=== PATIENT | female | born 1965 | race Caucasian/White ===

== ENCOUNTER → 2016-12-18 | Outpatient (CLI) | payer OTHER ==
--- NOTE | 2016-12-19 18:05 | BD ---
EXAMINATION TYPE: MG DEXA axial skeleton. DATE OF EXAM: 12/18/2016 12:51 PM COMPARISON: NONE CLINICAL HISTORY: 51-year-old female screening for osteoporosis Height: 67 IN Weight: 166 LBS FRAX RISK QUESTIONS: Alcohol (3 or more units per day): NO Family History (Parent hip fracture): NO Glucocorticoids (More than 3mos): NO (Ex: prednisone, prednisolone, methylprednisolone, dexamethasone, and hydrocortisone). History of Fracture in Adulthood: NO Secondary Osteoporosis: 1. Type 1 Diabetes: NO 2. Hyperthyroidism: NO 3. Menopause before 45: YES AGE 33 4. Malnutrition: NO 5. Chronic liver disease: NO Rheumatoid Arthritis: NO Current Tobacco Use: NO RISK FACTORS HISTORY OF: Active: YES Postmenopausal woman: YES AGE 33 MEDICATIONS: Thyroid Medications: YES Which medication: Synthroid How Lon YRS Additional Medications: CALCIUM, SYNTHROID, WATER PILL, EXAM MEASUREMENTS: Bone mineral densitometry was performed using the Factual System. Bone mineral density as measured about the Lumbar spine is: ----- L1-L4(G/cm2): 1.061 T Score Values are as follows: ----- L2: -0.8 ----- L3: -0.8 ----- L4: -1.5 ----- L1-L4: -1.0 Bone mineral density has: Decreased -3.6% since study of: 12/08/2013 Bone mineral density about the R hip (g/cm2): 0.781 Bone mineral density about the L hip (g/cm2): 0.807 T Score values are as follows: -----R Neck: -1.8 -----L Neck: -1.7 -----R Intertrochanter: -2.3 -----L Intertrochanter: -2.2 Bone mineral density has: Decreased -4.0% since study of: 12/08/2013 IMPRESSION: Osteopenia is indicated by T score values in the lumbar spine and both hips. There is slightly increa sed risk of fracture and the patient may be considered for treatment. Re-Screen 2 to 5 years. NOTE: T-SCORE=SD OF THE YOUNG ADULT MEAN.
== END | disposition home or self-care (01) ==
LOC: RADBDWWP 12:49
PROVIDERS: ATTEND Internal Medicine
DX: M85.88 Other specified disorders of bone density and structure, other site (principal)
CPT/HCPCS: 77080; G0202

== ENCOUNTER → 2016-12-18 | Outpatient (CLI) | payer OTHER ==
--- NOTE | 2016-12-19 11:46 | MM ---
Reason for exam: screening (asymptomatic). Last mammogram was performed 2 years and 3 months ago. History: Patient is postmenopausal. Family history of premenopausal breast cancer in paternal cousin at age 45 and breast cancer in paternal cousin. Benign excisional biopsy of the left breast, December 01, 2001. Physical Findings: A clinical breast exam by your physician is recommended on an annual basis and results should be correlated with mammographic findings. MG Screening Mammo w CAD Bilateral CC and MLO view(s) were taken. Prior study comparison: September 06, 2014, bilateral MG screening mammo w CAD. September 02, 2013, bilateral digital screening mammo w/CAD. There are scattered fibroglandular densities. No significant changes when compared with prior studies. ASSESSMENT: Benign, BI-RAD 2 RECOMMENDATION: Routine screening mammogram of both breasts in 1 year.
== END ==
LOC: RADMAMWWP 12:40
PROVIDERS: ATTEND Obstetrics & Gynecology
DX: Z12.31 Encounter for screening mammogram for malignant neoplasm of breast (principal)

== ENCOUNTER → 2017-07-03 | Outpatient (CLI) | payer OTHER ==
--- NOTE | 2017-07-03 08:32 | MR ---
EXAMINATION TYPE: MR hip RT wo con DATE OF EXAM: 07/03/2017 COMPARISON: NONE HISTORY: 52-year-old female right hip Pain, locking, clicking in rt hip TECHNIQUE: Multiplanar, multisequence images of the right hip were obtained without IV contrast. FINDINGS: Prominent fecal distention of the rectum and distal sigmoid measuring up to 5.5 cm wide. Uterus surgi masoud absent. There is at least moderate irregular cartilage loss along the anterior weightbearing aspect of the ri ght hip joint with irregularity of the subchondral bone along the acetabular side and underlying prom inent subchondral cystic change measuring up to 1.2 cm. The appearance of the anterior superior labru m is degenerative on the sagittal sequence. On the contralateral side, there is some focal subchondral marrow edema along the central weightbeari ng aspect. No discrete fracture on T1-weighted sequence. The edema is fairly localized to the subchon dral bone. No evidence for hip fracture. The SI joints and sacrum appear intact. No significant joint effusion. The rectus femoris and hamstring origins as well as the iliopsoas and gluteal insertions appear intac t. There is very minimal cystic change at the lateral gluteus medius insertion on the right suggestin g mild tendinosis. No suspicious bone marrow replacement. Heterogeneous fatty marrow signal likely due to osteoporosis. Normal course, caliber, and signal intensity of the sciatic nerves. IMPRESSION: 1. Prominent subchondral cystic change along the anterior weightbearing aspect of the right hip joint . There is at least moderate irregular cartilage loss here compatible with underlying osteoarthrosis. Radiographic correlation recommended. 2. Some mild focal subchondral marrow edema along the central weightbearing aspect of the left femora l head probably reactive to underlying osteoarthrosis. The localized extent of edema makes early AVN less likely especially if this side is not symptomatic. Follow-up can be considered. 3. Mild insertional gluteal tendinosis on the right. 4. Fecal distention of the distal sigmoid and rectum measuring up to 5.5 cm wide.
== END ==
LOC: RADMRIMAIN 06:08
PROVIDERS: ATTEND Orthopaedic Surgery
DX: M76.01 Gluteal tendinitis, right hip (principal); R60.0 Localized edema

== ENCOUNTER 2019-05-08 07:30 | Inpatient (IN) | payer BC, OTHER ==
[2019-05-11 09:58] VITALS: BMI 22.0
[2019-05-17] MEDS ORDERED: ONDANSETRON 4 MG/2 ML VIAL IVP ONE (06:35)
[2019-05-17] MEDS ORDERED: HYDROmorphone 0.5 MG/0.5 ML SYRINGE IVP PRN (06:35)
[2019-05-17] MEDS ORDERED: DEXAMETHASONE SOD PHOSPHATE 10 MG/ML 1 ML VIAL IV ONE (06:35)
[2019-05-19] MEDS ORDERED: TRANEXAMIC ACID 1,000 MG in SODIUM CHLORIDE 0.9% 100 ML IVPB ONE ×4 (05:00)
[2019-05-19] MEDS ORDERED: MELOXICAM 7.5 MG TAB PO ONE (05:00)
[2019-05-19] MEDS ORDERED: ACETAMINOPHEN TAB 500 MG TAB PO ONE (05:00)
[2019-05-19] MEDS ORDERED: VANCOMYCIN 1,000 MG in SODIUM CHLORIDE 0.9% 250 ML IVPB ONE ×2 (06:00→22:00)
[2019-05-19] MEDS ORDERED: ROPIVACAINE 246.25 MG, EPINEPHrine 0.5 MG, KETOROLAC 30 MG, cloNIDine HCL/PF 80 MCG, WA... MISCELLANE ONE ×10 (06:02→06:15)
[2019-05-19] MEDS ORDERED: LIDOCAINE 1% 20 ML VIAL (10MG/ML) FOR IV START INTRADERMA ONE (10:09)
[2019-05-19] MEDS: LACTATED RINGERS 1,000 ML IV SCH ×3 (10:09→17:59)
[2019-05-19] MEDS ORDERED: MIDAZOLAM (PF) 2 MG/2 ML VIAL IVP ONE (11:07)
[2019-05-19] MEDS ORDERED: hydrOXYzine PAMOATE 25 MG CAP PO PRN (11:09)
[2019-05-19] MEDS ORDERED: MAGNESIUM HYDROXIDE 2,400 MG/10 ML CUP PO PRN (11:09)
[2019-05-19] MEDS ORDERED: NALOXONE 0.4 MG/ML 1 ML VIAL IV PRN (11:09)
[2019-05-19] MEDS ORDERED: DIAZEPAM 5 MG TAB PO PRN (11:09)
[2019-05-19] MEDS ORDERED: HYDROmorphone 0.5 MG/0.5 ML SYRINGE IVP PRN (11:09)
[2019-05-19] MEDS ORDERED: HYDROcodone/APAP 5-325MG 1 EACH TAB PO PRN (11:09)
[2019-05-19] MEDS ORDERED: HYDROmorphone 1 MG/ML 1 ML SYRINGE IVP PRN (11:09)
[2019-05-19] MEDS ORDERED: SODIUM CHLORIDE 0.9% IRRIG 1,000 ML BTL IRRIGATION ONE (11:36)
[2019-05-19] MEDS ORDERED: ePHEDrine SULFATE/0.9% NACL/PF 50 MG/5 ML SYRINGE IV ONE (11:36)
[2019-05-19] MEDS ORDERED: SODIUM CHLORIDE 0.9% 100 ML BAG ONE (11:36)
[2019-05-19] MEDS ORDERED: MIDAZOLAM 2 MG/2 ML VIAL ONE (11:36)
[2019-05-19] MEDS ORDERED: PROPOFOL 10 MG/ML 20 ML VIAL IV ONE (11:36)
[2019-05-19] MEDS ORDERED: fentaNYL (PF) 50 MCG/ML 2 ML AMP ONE (11:36)
[2019-05-19] MEDS ORDERED: HEPARIN SODIUM,PORCINE 10,000 UNIT/ML 1 ML VIAL ONE (11:36)
[2019-05-19] MEDS ORDERED: TRANEXAMIC ACID 1,000 MG/10 ML VIAL ONE (11:36)
[2019-05-19] MEDS ORDERED: ceFAZolin 3,000 MG in SODIUM CHLORIDE 0.9% IRRIGATIO 3,000 ML IRRIGATION ONE (11:42)
--- NOTE | 2019-05-19 13:00 | P.OP ---
Date of Procedure: 05/19/19 Preoperative Diagnosis: Severe osteoarthritis right hip Postoperative Diagnosis: Severe osteoarthritis right hip Procedure(s) Performed: Right total hip arthroplasty with a direct anterior approach Implants: [employer] nephew Polarstem size 3 standard [employer] R3, 3 hole acetabular shell, 52 mm [employer] reflection 6.5 mm cancellus screw, 20 mm 2 [employer] R3, XLPE 20 acetabular liner [employer]hew Oxinium femoral head 36 m, +0 All components were press-fit. The articulation is Oxinium on polyethylene. Anesthesia: spinal Surgeon: Romero Apodaca Welder Apprentice #1: Kendal Sanderson Estimated Blood Loss (ml): 200 (67 mL returned with Cell Saver) Pathology: other (Femoral head and) Condition: stable Disposition: PACU Indications for Procedure: After failure of conservative treatment we discussed the surgical and nonsurgical treatment options at length. Patient wishes to proceed with a total hip arthroplasty with a direct anterior approach. Complications specific to this procedure were discussed at length, including but not limited to infection, leg length discrepancy, dislocation, and nerve injury. Patient is aware of all these complications and informed consent was obtained Operative Findings: The operative findings are consistent with severe osteoarthritis of the right hip Description of Procedure: Patient was seen and evaluated in the preoperative area, consent was reviewed, and the surgical site was marked with a skin marker. Patient was then brought to the operating room and given prophylactic antibiotics intravenously. 1 g of Tranexamic acid was also given. A spinal anesthetic was administered by the anesthesia department. The patient was then placed on the Ernest table with the bony prominences well-padded. The hip area was then prepped and draped in usual sterile fashion. A universal timeout was then performed, which confirmed the patient's name, surgical site, ALLERGIES, and procedure being performed. Next the incision site was located at 1 cm distal and 1 cm lateral to the anterior superior iliac spine. The skin and subcutaneous tissues were sharply incised. Incision was carefully dissected down to the fascia overlying the tensor fascia mabel muscle. This fascia was then incised in line with the incision. Next, using blunt finger dissection, the tensor fascia mabel muscle was dissected off its investing fascia. The muscle was then carefully retracted laterally with a cobra retractor over the lateral neck of the femur. Next, the circumflex vessels were identified and cauterized using the AquaMantis device. The anterior hip capsule was then exposed. The capsule was then opened and an inverted T fashion. Cobra retractors were then placed intracapsularly. The proximal femur was then visualized. The femoral neck was then osteotomized appropriate level above the lesser trochanter. Small amount of traction was placed with the Ernest table. A small wedge of bone was then removed from the remaining femoral head. Next, using a corkscrew femoral head was easily removed from the acetabulum. On gross visual inspection, the femoral head had complete loss of articular cartilage in multiple periarticular osteophytes. Attention was then turned to the acetabulum. the acetabulum was exposed and any remaining labrum was excised. Sequential reaming of the acetabulum was performed using fluoroscopic guidance. When the appropriate size was reached, a trial was then placed. The position and fit of the trial was checked with fluoroscopy. The trial was then removed. Then, usi ng fluoroscopic guidance, the final implant was impacted at 20 of anteversion and 40 of abduction, and fully seated in the acetabulum. 2 screws were then placed in the acetabulum. Again fluoroscopy was used to check position of the screws. Next, the liner was then impacted, with a 20 elevated liner located in the anterior superior quadrant. Component locking was confirmed. Attention was then directed to the femur. With the aid of the Ernest table, the femur was externally rotated to approximately 130, extended, and abducted under the opposite leg. A side hook was then placed under the proximal femur, and the side hook elevator was used to elevate the proximal femur. Retractors were then placed. A capsular release was performed, as well as a release of the conjoined tendon, which afforded excellent visualization of the proximal femur. Next, a box osteotome was used to lateralize the proximal femur. A tennis ball coverer hand was then used to locate the femoral canal. Sequential broaching was then performed with appropriate size which afforded excellent fixation in the proximal femur. A trial was then placed with appropriate head and neck, and the hip was gently reduced with the aid of the Ernest table. Fluoroscopy was then used to check position of the components, as well as to ensure equal leg lengths. The hip was then gently dislocated and the trials were then removed. Final implants were then impacted and the hip was again reduced. Final fluoroscopic x-rays confirmed that the components were in anatomic position, as well as equal leg lengths. The hip was also taken through range of motion, and found to be stable. The hip was then copiously irrigated with antibiotic solution with pulsatile lavage. The hip was then irrigated with Irrisept solution. The soft tissues were then injected with a ropivacaine solution, which consisted of 246.25 mg of ropivacaine, 0.5 mg of epinephrine, 30 mg of Toradol, 80 g of clonidine, and 48.45 mL of sterile water, for a total of 100 mL of fluid injected. A second dose of 1 g of Tranexamic acid was also given. the fascia was then closed with 2-0 strata fix suture. The subcutaneous tissue was closed with 3-0 Vicryl. The subcuticular tissue was closed with 3-0 strata fix suture. The skin was then closed with Dermabond glue and a sterile silver dressing. The patient was then transferred to the recovery room in stable condition. The personal assistant JANESSA Can was required due to the complexity of surgery, and the need for skilled surgical specialist for positioning, draping, exposure, retraction, and closure of the wound.
[2019-05-19] MEDS: HYDROmorphone 0.5 MG/0.5 ML SYRINGE IVP PRN ×2 (13:26→22:24)
[2019-05-19] MEDS ORDERED: HYDROmorphone 1 MG/ML 1 ML SYRINGE IVP ONE ×3 (13:33→16:46)
--- NOTE | 2019-05-19 13:55 | XR ---
EXAMINATION TYPE: XR Hip Limited RT DATE OF EXAM: 05/19/2019 CLINICAL HISTORY: Right hip pain and osteoarthritis. TECHNIQUE: Single AP portable view of right hip is obtained immediately postoperatively. COMPARISON: None. FINDINGS: Metallic hardware from right hip arthroplasty is seen and appears satisfactory in alignment and position. There is evidence of recent surgery with subcutaneous gas and soft tissue swelling no satish laterally. IMPRESSION: Metallic hardware from right hip arthroplasty is satisfactory in position.
--- NOTE | 2019-05-19 13:56 | FL ---
EXAMINATION TYPE: FL guidance operating room, XR Hip Limited RT DATE OF EXAM: 05/19/2019 CLINICAL HISTORY: Right femoral arthroplasty. Fluoroscopic documentation. TECHNIQUE: Fluoroscopy. COMPARISON: None. FINDINGS: Fluoroscopic guidance was provided during procedure performed by Dr. Apodaca. A total of 26 seconds of fluoroscopic time was utilized during the procedure and 2 spot images was acquired dur ing right femoral arthroplasty. IMPRESSION: As Above.
[2019-05-19] MEDS ORDERED: HYDROmorphone 0.5 MG/0.5 ML SYRINGE IVP ONE (14:13)
[2019-05-19] MEDS ORDERED: LACTATED RINGERS 1,000 ML IV ONE (14:15)
[2019-05-19] MEDS ORDERED: diphenhydrAMINE 50 MG/ML 1 ML VIAL IVP ONE (14:58)
[2019-05-19] MEDS: SODIUM CHLORIDE 0.9% 1,000 ML IV SCH (18:00)
[2019-05-19] MEDS: ONDANSETRON 4 MG/2 ML VIAL IVP PRN (22:09)
[2019-05-19] MEDS: SENNOSIDES-DOCUSATE SODIUM 1 EACH TAB PO SCH (22:11)
[2019-05-19] MEDS: ASPIRIN 325 MG TAB PO SCH (22:11)
[2019-05-19] MEDS: POTASSIUM CHLORIDE ER 20 MEQ TAB.ER PO SCH (22:11)
--- NOTE | 2019-05-19 23:42 | CONS ---
CONSULTATION REASON FOR CONSULTATION: Advice regarding hypothyroidism and multiple medical issues, requested by Dr. Apodaca. HISTORY OF PRESENT ILLNESS: This 54-year-old woman with a past medical history of multiple medical problems, including hypothyroidism, history of migraine, hysterectomy, DJD, being followed by a primary physician in the [place] area, underwent right total hip joint arthroplasty by Dr. Apodaca. There is no history of any chest pain, no history of palpitations, no history of headache, nausea, vomiting, diarrhea, fever, rigor or chills at this time. PAST MEDICAL HISTORY: 1. Hypothyroidism. 2. History of migraine. 3. DJD. 4. Hysterectomy. MEDICATIONS: Medications prior to admission include: 1. Topamax 100 mg p.o. daily. 2. K-Dur 20 mEq p.o. b.i.d. 3. Synthroid 150 mcg p.o. daily. 4. HydroDIURIL 25 mg b.i.d. ALLERGIES: NONE. FAMILY HISTORY: No history of heart disease or strokes in the family. SOCIAL HISTORY: Previous history of smoking. Occasional alcohol intake. REVIEW OF SYSTEMS: ENT: No diminished hearing. No diminished vision. CARDIOVASCULAR SYSTEM: No angina, palpitations. RESPIRATORY SYSTEM: No cough, hemoptysis. GI: No nausea, vomiting. : No dysuria or retention. NERVOUS SYSTEM: No numbness, weakness. ALLERGY/IMMUNOLOGY: No asthma, hayfever. MUSCULOSKELETAL: As mentioned earlier. HEMATOLOGY/ONCOLOGY: No history of anemia. ENDOCRINE: Hypothyroidism. CONSTITUTIONAL: As mentioned earlier. DERMATOLOGY: Negative. RHEUMATOLOGY: Negative. PSYCHIATRY: As mentioned earlier. PHYSICAL EXAMINATION: Patient alert and oriented x3. Pulse is 71. It is 49 at rest. Blood pressure is 90/60, respirations 16, temperature 97.4, pulse ox 94% on room air. HEENT: Conjunctivae normal. NECK: No jugular venous distention. CARDIOVASCULAR SYSTEM: S1, S2 muffled. RESPIRATORY SYSTEM: Breath sounds diminished at the bases. No rhonchi. No crackles. ABDOMEN: Soft, non-tender. No mass palpable. LEGS: Status post surgery. NERVOUS SYSTEM: Higher functions as mentioned earlier. Moves all 4 limbs. No focal motor or sensory deficit. LYMPHATICS: No lymph node palpable in neck, axillae or groin. SKIN: No ulcer, rash, bleeding. JOINTS: No active deforming arthropathy. LABS: Creatinine is 1.09 preoperatively on 05/11/2019. ASSESSMENT: 1. Status post right total hip joint arthroplasty. 2. Bradycardia, possibly sinus. 3. Increased creatinine prior to admission. 4. History of hypothyroidism. 5. History of migraine. 6. History of degenerative joint disease. 7. History of thyroidectomy, goiter. 8. Remote history of nicotine dependence. RECOMMENDATIONS AND DISCUSSION: In this 54-year-old woman who presented with multiple medical issues, at this time I recommend to continue current management, continue with symptomatic treatment. Resume the home medications. Monitor blood pressure closely. EKG. Otherwise, I would also recommend repeat labs. Repeat BMP in the morning. We will follow the patient closely with you. Levothyroxine dose may be continued. Incentive spirometry. Recommend close followup with the primary physician in the outpatient setting. Thank you, Dr. Apodaca, for letting us participate in the care of this patient. Please refer to the orders for further details. MMODL / IJN: [id number] /
[2019-05-20] MEDS: HYDROcodone/APAP 5-325MG 1 EACH TAB PO PRN ×2 (00:13→05:19)
[2019-05-20] MEDS: LACTATED RINGERS 1,000 ML IV SCH ×2 (03:23→23:32)
[2019-05-20] MEDS: LEVOTHYROXINE 75 MCG TAB PO SCH (05:19)
[2019-05-20] MEDS: SODIUM CHLORIDE 0.9% 1,000 ML IV SCH ×2 (05:29→21:10)
[2019-05-20 07:52] LABS: Basophils % (A) 0 %; Eosinophils # (A) 0.1 k/uL (0-0.7); Eosinophils % (A) 1 %; HCT 29.7 % (34.0-46.0); Lymphocytes # (A) 0.8 k/uL (1.0-4.8); Lymphocytes % (A) 13 %; MCH 28.4 pg (25.0-35.0); MCHC 32.9 g/dL (31.0-37.0); MCV 86.4 fL (80.0-100.0); Monocytes # (A) 0.2 k/uL (0-1.0); Monocytes % (A) 4 %; Neutrophils # (A) 4.8 k/uL (1.3-7.7); Neutrophils % (A) 81 %; Platelet Count 160 k/uL (150-450); RBC 3.44 m/uL (3.80-5.40); RDW 15.1 % (11.5-15.5); WBC 5.9 k/uL (3.8-10.6)
[2019-05-20 07:56] LABS: HGB 9.8 gm/dL (11.4-16.0)
[2019-05-20 08:02] LABS: African American GFR (CKD) >90 (>60 ml/min/1.73 sqM); Anion Gap 5 mmol/L; Blood Urea Nitrogen 16 mg/dL (7-17); Calcium 8.3 mg/dL (8.4-10.2); Carbon Dioxide 23 mmol/L (22-30); Chloride 111 mmol/L (98-107); Glucose 103 mg/dL (74-99); Potassium 3.7 mmol/L (3.5-5.1); Sodium 139 mmol/L (137-145)
[2019-05-20] MEDS: POTASSIUM CHLORIDE ER 20 MEQ TAB.ER PO SCH ×2 (08:22→20:57)
[2019-05-20] MEDS: MELOXICAM 7.5 MG TAB PO SCH (08:23)
[2019-05-20] MEDS: ASPIRIN 325 MG TAB PO SCH ×2 (08:23→22:43)
[2019-05-20] MEDS: ONDANSETRON 4 MG/2 ML VIAL IVP PRN ×2 (08:23→17:07)
[2019-05-20] MEDS ORDERED: TOPIRAMATE 100 MG TAB PO SCH (09:00)
[2019-05-20] MEDS ORDERED: HYDROCHLOROTHIAZIDE 25 MG TAB PO SCH (09:00)
[2019-05-20] MEDS ORDERED: traMADol 50 MG TAB PO PRN (09:02)
--- NOTE | 2019-05-20 09:11 | P.DS ---
Providers Date of admission: 05/19/19 09:09 Expected date of discharge: 05/20/19 Attending physician: Romero Apodaca Consults: 05/19/19 11:09 Consult Physician Routine Consulting Provider: Jas Steinberg Consult Reason/Comments: medical management Do you want consulting provider notified?: Yes Primary care physician: Jes Mg - Discharge Diagnosis(es) (1) Osteoarthritis of right hip Current Visit: Yes Status: Acute (2) Status post total hip replacement, right Current Visit: Yes Status: Acute Hospital Course: This is a 54-year-old female with known history of degenerative arthritis of the right hip. The patient presents for evaluation. After discussion and consideration patient elects to proceed with total hip arthroplasty. The patient is seen preoperatively by Dr. Apodaca and medically cleared for surgery by their primary care physician. Patient is admitted to [facility] on 05/19[facility]2090 for total hip arthroplasty. The procedures performed without complication or sequelae. The patient is doing well postoperatively. Labs and vital signs are stable on day of discharge. On day of discharge patient's hip incision is healing well. There is minimal erythema. There is no drainage noted at this time. There is minimal soft tissue swelling to the hip and thigh. Patient has full foot and ankle motion without difficulty or pain. Calf is soft and nontender to palpation. Neurovascular status to the right lower extremity is intact. Patient is discharged home in good condition. Opioid start talking form is reviewed and signed at patient bedside. Please see med rec for accurate list of home medications. Plan - Discharge Summary Discharge Rx Participant: Yes New Discharge Prescriptions: New Aspirin 325 mg PO BID #60 tab Sennosides [Senokot] 1 tab PO BID #60 tablet traMADol HCl [Ultram] 1 - 2 tab PO Q6H PRN #56 tab PRN Reason: Pain Ondansetron Odt [Zofran Odt] 1 - 2 tab PO Q8HR PRN #18 tab PRN Reason: Nausea No Action Hydrochlorothiazide [Hydrodiuril] 25 mg PO DAILY Levothyroxine Sodium [Synthroid] 150 mcg PO DAILY Topiramate [Topamax] 100 mg PO DAILY Potassium Chloride ER [K-Dur 20] 20 meq PO BID Discharge Medication List Hydrochlorothiazide [Hydrodiuril] 25 mg PO DAILY 05/11/19 [History] Levothyroxine Sodium [Synthroid] 150 mcg PO DAILY 05/11/19 [History] Topiramate [Topamax] 100 mg PO DAILY 05/11/19 [History] Potassium Chloride ER [K-Dur 20] 20 meq PO BID 05/19/19 [History] Aspirin 325 mg PO BID #60 tab 05/20/19 [Rx] Ondansetron Odt [Zofran Odt] 1 - 2 tab PO Q8HR PRN #18 tab 05/20/19 [Rx] Sennosides [Senokot] 1 tab PO BID #60 tablet 05/20/19 [Rx] traMADol HCl [Ultram] 1 - 2 tab PO Q6H PRN #56 tab 05/20/19 [Rx] Follow up Appointment(s)/Referral(s): Romero Apodaca DO [Doctor of Osteopathic Medicine] - 2 Weeks Activity/Diet/Wound Care/Special Instructions: Weightbearing as tolerated with walker. Leave dressing intact. Dressing may be removed by home care nurse or by patient in 10 days. May shower with dressing on. Recommend use of compression stockings daily for at least 2 weeks during the day to help prevent swelling and blood clots. May remove at night before sleeping. Please follow-up with [facility] in 2 weeks and call with any questions or concerns, .
[2019-05-20] MEDS: traMADol 50 MG TAB PO PRN ×4 (10:07→22:43)
[2019-05-20] MEDS: METOCLOPRAMIDE 5 MG/ML 2 ML VIAL IVP PRN ×2 (10:22→21:06)
[2019-05-20] MEDS: PANTOPRAZOLE 40 MG TABLET PO SCH ×2 (12:29→17:06)
--- NOTE | 2019-05-20 20:22 | PN ---
PROGRESS NOTE DATE OF SERVICE: 05/20/2019. This 54-year-old woman who was admitted after hip arthroplasty has some mild relative hypotension. No chest pain. No palpitations. No fever. The patient complains of nausea. REVIEW OF SYSTEMS: CARDIOVASCULAR SYSTEM: No angina, palpitations. RESPIRATORY SYSTEM: As mentioned earlier. GI: As mentioned earlier. : No dysuria or retention. NERVOUS SYSTEM: No numbness, weakness. CURRENT MEDICATIONS: Reviewed. They include: 1. Aspirin 325 mg b.i.d. 2. Valium 2.5 mg q.8. 3. Dilaudid 0.2 mg q.3. 4. Vistaril 25 mg p.o. daily. 5. Synthroid 150 mcg p.o. daily. 6. Mobic 7.5 daily. 7. Narcan. 8. Zofran. 9. Protonix 40 mg b.i.d. 10.Senokot-S. 11.Topamax. 12.Ultram. PHYSICAL EXAMINATION: Alert and oriented x3. Pulse 77, blood pressure 122/73, respiration 16, temperature 98.2, pulse ox 97% on room air. HEENT: Conjunctivae normal. NECK: No jugular venous distention. CARDIOVASCULAR SYSTEM: S1, S2 muffled. RESPIRATORY SYSTEM: Breath sounds diminished at the bases. No rhonchi. No crackles. ABDOMEN: Soft, non-tender. No mass palpable. LEGS: Status post right hip arthroplasty. NERVOUS SYSTEM: No focal deficit. LABS: WBC 5.9, hemoglobin 9.8. Other labs are noted. ASSESSMENT: 1. Status post right total hip joint arthroplasty. 2. Postoperative nausea. 3. Bradycardia, possibly sinus, improved. 4. Increased creatinine prior to admission, improved. 5. History of hypothyroidism. 6. History of migraine. 7. History of degenerative joint disease. 8. History of thyroidectomy and goiter. 9. Remote history of nicotine dependence. RECOMMENDATIONS AND DISCUSSION: I recommend to continue current medications, continue with the monitoring, symptomatic treatment. Otherwise, the patient has continued nausea. I would recommend continuing with symptomatic treatment. Continue with IV fluids. I would also recommend IV Protonix. Continue to monitor. I also recommend repeat labs in the morning. MMODL / IJN: [id number] /
[2019-05-20] MEDS: PANTOPRAZOLE 40 MG/10 ML VIAL IVP SCH (21:10)
[2019-05-20] MEDS ORDERED: SUMAtriptan SUCCINATE 6 MG/0.5 ML VIAL SQ STA (21:53)
[2019-05-20] MEDS: SENNOSIDES-DOCUSATE SODIUM 1 EACH TAB PO SCH (22:34)
[2019-05-20] MEDS: TOPIRAMATE 100 MG TAB PO SCH (22:43)
--- NOTE | 2019-05-20 23:10 | CT ---
History: ITS.REASON CT Reason: headache Exam: CT HEAD Without Contrast Technique more: CTDI is 49.27 mGy and DLP is 1109.4 mGy-cm. Technique more: This CT exam was performed using one or more of the following dose reduction techniques: automated exposure control, adjustment of the mA and/or kV according to patient size, and/or use of iterative reconstruction technique. Comparison: None available FINDINGS: No intracranial hemorrhage, mass effect or CT evidence of acute infarct. The ventricles are within limits and midline. The visualized paranasal sinuses, mastoids and orbits appear within limits. IMPRESSION: No intracranial hemorrhage, mass effect or CT evidence of acute infarct.
[2019-05-21] MEDS: LEVOTHYROXINE 75 MCG TAB PO SCH (05:47)
[2019-05-21] MEDS: ONDANSETRON 4 MG/2 ML VIAL IVP PRN ×2 (06:43→17:02)
--- NOTE | 2019-05-21 08:03 | P.PN ---
Subjective Progress Note Date: 05/21/19 This is a 54-year-old female who is status post right total hip arthroplasty. This is postoperative day #2 and patient is seen and evaluated at bedside. Patient's discharge was postponed due to nausea. Patient complains of a headache this morning, but states that this headache was brought on by dry heaves. Patient states that she was able to eat Jell-O this morning. Patient states that she had headaches yesterday and took Topamax which improved her headache. Patient states that she has been up and walking with physical therapy. Patient denies any fever/chills, numbness, weakness, tingling, abdominal pain, shortness of breath or chest pain. Objective - Vital Signs Vital signs: Vital Signs Temp 98.6 F 05/21/19 02:20 Pulse 76 05/21/19 02:20 Resp 18 05/21/19 03:45 BP 122/73 05/21/19 02:20 Pulse Ox 96 05/21/19 02:20 Intake & Output 05/20/19 05/21/19 05/21/19 18:59 06:59 18:59 Intake Total 756 Balance 756 Intake: Intake, IV Titration 756 Amount Sodium Chloride 0.9% 1, 756 000 ml @ 63 mls/hr IV . [id number] [facility] Rx#:[id number] Other: Voiding Method Toilet Toilet # Voids 2 2 - Exam Vital signs are stable. Patient is in no acute distress and is alert and oriented 3. Calf is soft and nontender to palpation. Dressing is clean, dry, and intact. Patient has full foot and ankle motion without pain or difficulty. Neurovascular status and circulatory status are intact. - Labs CBC & Chem 7: 05/20/19 07:11 05/20/19 07:11 Labs: Abnormal Lab Results - Last 24 Hours (Table) 05/20/19 Range/Units 07:11 Chloride 111 H (98-107) mmol/L Glucose 103 H (74-99) mg/dL Calcium 8.3 L (8.4-10.2) mg/dL Assessment and Plan (1) Osteoarthritis of right hip Current Visit: Yes Status: Acute Code(s): M16.11 - UNILATERAL PRIMARY OST EOARTHRITIS, RIGHT HIP SNOMED Code(s): 958981183986886 (2) Status post total hip replacement, right Current Visit: Yes Status: Acute Code(s): Z96.641 - PRESENCE OF RIGHT ARTIFI CIAL HIP JOINT SNOMED Code(s): 095962825652 Plan: Continue routine postop care and pain control. Continue anticoagulation with aspirin. Weightbearing as tolerated with a walker. Leave dressing in place for 10 days. Appreciate input from medicine. Anticipate discharge home with homecare today or tomorrow.
[2019-05-21] MEDS: ASPIRIN 325 MG TAB PO SCH (08:05)
[2019-05-21] MEDS: PANTOPRAZOLE 40 MG/10 ML VIAL IVP SCH ×2 (08:05→20:20)
[2019-05-21] MEDS: MELOXICAM 7.5 MG TAB PO SCH (08:05)
[2019-05-21] MEDS: POTASSIUM CHLORIDE ER 20 MEQ TAB.ER PO SCH ×2 (08:05→20:11)
[2019-05-21] MEDS: METOCLOPRAMIDE 5 MG/ML 2 ML VIAL IVP PRN (11:45)
[2019-05-21] MEDS ORDERED: HYDROmorphone 0.5 MG/0.5 ML SYRINGE IVP PRN (12:16)
[2019-05-21] MEDS ORDERED: SUMAtriptan SUCCINATE 6 MG/0.5 ML VIAL SQ STA (12:25)
[2019-05-21] MEDS: SODIUM CHLORIDE 0.9% 1,000 ML IV SCH ×3 (13:36→23:05)
--- NOTE | 2019-05-21 15:17 | XR ---
EXAMINATION TYPE: XR chest 1V portable DATE OF EXAM: 05/21/2019 COMPARISON: NONE HISTORY: Shortness of breath TECHNIQUE: Single frontal view of the chest is obtained. FINDINGS: There is no focal air space opacity, pleural effusion, or pneumothorax seen. Mild pulmona ry vascular congestion is seen with cephalization. The cardiac silhouette size is within normal limit s. The osseous structures are intact. IMPRESSION: Mild pulmonary vascular congestion although the heart is upper limits of normal is nonen larged and noncardiogenic fluid overload could be considered.
[2019-05-21 15:25] LABS: Appearance,Urine Clear (Clear); Bilirubin,Urine Negative (Negative); Blood,Urine Negative (Negative); Color,Urine Yellow; Glucose,Urine (UA) Negative (Negative); Ketones,Urine 3+ (Negative); Leukocyte Esterase,Urine Negative (Negative); Nitrite,Urine Negative (Negative); Protein,Urine Trace (Negative); Specific Gravity,Urine 1.019 (1.001-1.035); Urobilinogen,Urine <2.0 mg/dL (<2.0)
[2019-05-21] MEDS ORDERED: HEPARIN SODIUM,PORCINE 5,000 UNIT/ML 1 ML VIAL SQ SCH (16:00)
[2019-05-21] MEDS: MAG HYDROX/AL HYDROX/SIMETH 30 ML CUP PO SCH ×2 (16:56→20:20)
[2019-05-21] MEDS: METOCLOPRAMIDE 5 MG/ML 2 ML VIAL IVP SCH (16:57)
[2019-05-21] MEDS: traMADol 50 MG TAB PO PRN (17:08)
--- NOTE | 2019-05-21 19:52 | P.PN ---
Progress Note - Text Progress Note Date: 05/21/19 Patient seen at 13:20. Anesthesiology called to evaluate patient due to headache. The patient complains of severe headache that started in the afternoon after her surgery 05/19. The patient did have a spinal for that procedure. Per the patient, the headache feels like a migraine with some eleme nts of photophobia, but is more severe than her typical migraine. She did miss a dose of her maintenance topamax, but the headache started prior to that. The headache is worse when sitting and better when supine. Associated vomiting. The patient had almost complete relief after a dose of sumatriptan. The relief lasted about 8 hours. The patient received a second dose of sumatriptan prior to the interview and is starting to get relief. VSS Puncture site clean and dry A/P POD#2 s/p spinal for PAPO with spinal headache possibly complicated by migraine -- discussed at length the patient's options including blood patch vs conservative treatment with hydration and caffeine. The patient wishes to try conservative treatment first -- continue sumatriptan PRN -- will provide epidural blood patch if patient wishes
[2019-05-21] MEDS: SENNOSIDES-DOCUSATE SODIUM 1 EACH TAB PO SCH (20:11)
--- NOTE | 2019-05-21 20:14 | PN ---
PROGRESS NOTE DATE OF SERVICE: 05/21/2019 This 54-year-old woman was admitted with right hip arthroplasty with significant nausea. Patient also had significant headache also. The patient also had history of migraine, was on Topamax prophylaxis which was stopped a couple days ago. However, yesterday's headache responded to Imitrex subcu, which the patient used to take previously, but the patient had recurrence of headache today and the patient headache was more postural and especially sitting up according to the patient and the patient being closely monitored at this time. A CT scan of the brain was also done which showed no evidence of any acute disease and a chest x-ray was also done which showed suspected some suspected mild pulmonary vascular congestion. PAST MEDICAL HISTORY: Reviewed. REVIEW OF SYSTEMS: Cardiovascular system: As mentioned earlier. RESPIRATORY: As mentioned earlier. GASTROINTESTINAL: As mentioned earlier. GENITOURINARY: No dysuria. CENTRAL NERVOUS SYSTEM: As mentioned earlier. CURRENT MEDICATIONS: Reviewed and include: 1. Maalox 30 mL t.i.d. p.r.n. 2. Valium 2.5 mg q.h.s. 3. Dilaudid. 4. Zestril. 5. Synthroid 150 mcg p.o. daily. 6. Reglan. 7. Narcan. 8. Protonix. 9. K-Dur. 10.Senokot. 11.Topamax. 12.Ultram. PHYSICAL EXAM: Patient is alert, oriented x3. Pulse 79, blood pressure 120/77, respirations 16, temperature 98.2, pulse ox 98% on room air. HEENT: Conjunctivae normal. NECK: No JVD. CARDIOVASCULAR: S1, S2 muffled. RESPIRATIONS: Breath sounds diminished in the bases. A few scattered rhonchi and crackles. ABDOMEN: Soft, nontender. No mass palpable. LEGS are no edema. No swelling. CENTRAL NERVOUS SYSTEM: No focal deficits. LABS: WBC 5.9, hemoglobin is 9.8, sodium 139, potassium 3.7. ASSESSMENT: 1. Status post right total knee arthroplasty. 2. Postoperative nausea, possible acute gastritis. 3. Headaches, rule out spinal headaches versus migraine, acute exacerbation. 4. Bradycardia possibly sinus, improved. 5. Increased creatinine prior to admission, improved. 6. History of hypothyroidism. 7. History of migraine. 8. History of degenerative joint disease. 9. History of thyroidectomy and goiter. 10.Remote history of nicotine dependence. RECOMMENDATIONS AND DISCUSSION: Recommend to continue current medications, continue with monitoring, management and symptomatic treatment. Otherwise, at this time, I recommend continue with the current medications. I would also recommend repeat labs and closely monitor and further recommendations to follow. Closely follow with Orthopedic surgery and as well as anesthesia. MMKANDIL / IJN: [id number] /
[2019-05-21] MEDS: TOPIRAMATE 100 MG TAB PO SCH (20:20)
[2019-05-21] MEDS: ASPIRIN 81 MG PO SCH (20:20)
[2019-05-22] MEDS: LEVOTHYROXINE 75 MCG TAB PO SCH (06:23)
[2019-05-22] MEDS: MAG HYDROX/AL HYDROX/SIMETH 30 ML CUP PO SCH ×3 (08:04→21:04)
[2019-05-22] MEDS: POTASSIUM CHLORIDE ER 20 MEQ TAB.ER PO SCH ×2 (08:05→21:04)
[2019-05-22] MEDS: PANTOPRAZOLE 40 MG/10 ML VIAL IVP SCH (08:05)
[2019-05-22] MEDS: ASPIRIN 81 MG PO SCH ×2 (08:05→21:05)
[2019-05-22] MEDS: METOCLOPRAMIDE 5 MG/ML 2 ML VIAL IVP SCH ×3 (08:05→18:16)
--- NOTE | 2019-05-22 08:24 | P.PN ---
Subjective Progress Note Date: 05/22/19 This is a 54-year-old female who is status post right total hip arthroplasty. This is postoperative day #3 and patient is seen and evaluated at bedside. Patient states that she continues to have a headache with nausea and dry heaves. Patient states that the pain improves with rest and sumatriptan. Patient states that she has had symptoms of migraines like this in the past. Patient states that she is attempting to eat breakfast this morning. Patient states that her pain in the right hip is well controlled. Patient states that she has been up and walking with physical therapy. Patient denies any fever/chills, numbness, weakness, tingling, abdominal pain, shortness of breath or chest pain. Objective - Vital Signs Vital signs: Vital Signs Temp 98.6 F 05/22/19 07:00 Pulse 82 05/22/19 07:00 Resp 15 05/22/19 07:00 BP 130/76 05/22/19 07:00 Pulse Ox 98 05/22/19 07:00 Intake & Output 05/21/19 05/22/19 05/22/19 18:59 06:59 18:59 Intake Total 504 1150 Balance 504 1150 Intake: IV 504 Sodium Chloride 0.9% 1, 504 000 ml @ 63 mls/hr IV . [id number] ROHAN Rx#:[id number] Intake, IV Titration 750 Amount Sodium Chloride 0.9% 1, 750 000 ml @ 75 mls/hr IV . [id number] ROHAN Rx#:[id number] Oral 400 Other: Voiding Method Toilet # Voids 2 - Exam Vital signs are stable. Patient is in no acute distress and is alert and oriented 3. Calf is soft and nontender to palpation. Patient has good active range of motion of the right hip. Dressing is clean, dry, and intact. Patient has full foot and ankle motion without pain or difficulty. Neurovascular status and circulatory status are intact. - Labs CBC & Chem 7: 05/20/19 07:11 05/20/19 07:11 Labs: Abnormal Lab Results - Last 24 Hours (Table) 05/21/19 Range/Units 15:00 Urine Protein Trace H (Negative) Urine Ketones 3+ H (Negative) Microbiology - Last 24 Hours (Table) 05/21/19 15:00 Urine Culture - Preliminary Urine,Clean Catch Assessment and Plan (1) Osteoarthritis of right hip Current Visit: Yes Status: Acute Code(s): M16.11 - UNILATERAL PRIMARY OSTEOARTHRITIS, RIGHT HIP SNOMED Code(s): 635762084319199 (2) Status post total hip replacement, right Current Visit: Yes Status: Acute Code(s): Z96.641 - PRESENCE OF RIGHT ARTIFICIAL HIP JOINT SNOMED Code(s): 813347952519 Plan: Continue routine postop care and pain control. Continue anticoagulation with aspirin 81 mg twice a day. Weightbearing as tolerated with a walker. Leave dressing in place for 10 days. Appreciate input from medicine. Anticipate discharge home with homecare later today.
[2019-05-22 09:38] LABS: Basophils % (A) 0 %; Eosinophils % (A) 0 %; HCT 30.1 % (34.0-46.0); HGB 9.8 gm/dL (11.4-16.0); Lymphocytes # (A) 0.7 k/uL (1.0-4.8); Lymphocytes % (A) 9 %; MCHC 32.6 g/dL (31.0-37.0); Mean Platelet Volume 7.2; Monocytes # (A) 0.4 k/uL (0-1.0); Monocytes % (A) 5 %; Neutrophils # (A) 6.6 k/uL (1.3-7.7); Neutrophils % (A) 85 %; Platelet Count 175 k/uL (150-450); RDW 14.1 % (11.5-15.5); WBC 7.8 k/uL (3.8-10.6)
[2019-05-22] MEDS: MIDAZOLAM (PF) 2 MG/2 ML VIAL IVP ONE ×2 (15:31→15:37)
[2019-05-22] MEDS ORDERED: LACTATED RINGERS 1,000 ML IV ONE (15:57)
--- NOTE | 2019-05-22 16:06 | P.PN ---
Progress Note - Text Anesthesia. 1559. Patient had her hip replacement surgery on the word of May and has had a postural headache associated with photophobia and nausea since May 20. Conservative measures haven't helped. Patient now wishes to have an epidural blood patch performed. Timeout was performed at 1530. The patient seated perpendicular to the edge of the stretcher and with hat, Mask and sterile glovesthe patient's lumbar back was prepped with iodinated prep solution and a sterile drape placed. The area of the original spinal injection was identified and a skin wheal raised in this area. An 18-gauge Touhy needle was advanced into this area without entering the epidural space another attempt was made using a right paramedian approach after it was determined that there is some levorotatory scoliosis in this area. This was also not successful finally a right paramedian approach was used one interspace above the original spinal injection and the epidural space was entered using a [id number] technique. At this 0.20 mL of autologous blood was drawn after a sterile prep of the patient's right antecubital fossa and injected through the Touhy needle with partial resolution of headache symptoms. Sedation mounted to 1 mg of Versed IV the patient tolerated the procedure without incident. Patient is advised to continue conservative measures including horizontal positioning whenever not active and a rolled up towel placed behind her back when she is laying completely supine.
[2019-05-22] MEDS: SODIUM CHLORIDE 0.9% 1,000 ML IV SCH (18:16)
[2019-05-22] MEDS: PANTOPRAZOLE 40 MG TABLET PO SCH (18:16)
[2019-05-22] MEDS: SENNOSIDES-DOCUSATE SODIUM 1 EACH TAB PO SCH (21:04)
[2019-05-22] MEDS: TOPIRAMATE 100 MG TAB PO SCH (21:05)
[2019-05-22] MEDS: traMADol 50 MG TAB PO PRN (21:09)
--- NOTE | 2019-05-22 21:51 | PN ---
PROGRESS NOTE DATE OF SERVICE: 05/22/2019 This 54-year-old woman who was admitted after right total knee arthroplasty also had some nausea and possible acute gastritis. Patient also had headaches, and a blood patch has been recommended by Anesthesia for spinal headache. No chest pain. No palpitations. No fever. Past medical history reviewed. REVIEW OF SYSTEMS: CARDIOVASCULAR SYSTEM: No angina, palpitations. RESPIRATORY SYSTEM: As mentioned earlier. GI: As mentioned earlier. : No dysuria or retention. NERVOUS SYSTEM: No numbness, weakness. CURRENT MEDICATIONS: Reviewed. They include: 1. Maalox 30 mL p.o. t.i.d. 2. Aspirin 81 mg p.o. b.i.d. 3. Vistaril 25 mg q.4 p.r.n. 4. Synthroid 150 mcg p.o. daily. 5. Milk of Magnesia 2.4 grams daily. 6. Reglan 5 mg before meals t.i.d. 7. Narcan 0.2 q.2 p.r.n. 8. Zofran 4 mg IV q.8. 9. Protonix 40 mg p.o. b.i.d. 10.K-Dur 20 mEq. 11.Topamax 100 mg at bedtime. 12.Ultram 50 mg q.6 p.r.n. PHYSICAL EXAMINATION: Patient is alert, oriented x3. Pulse is 78, blood pressure 138/80, respirations 16, temperature 98.4, pulse ox 98% on room air. HEENT: Conjunctivae normal. NECK: No jugular venous distention. CARDIOVASCULAR SYSTEM: S1, S2 muffled. RESPIRATORY SYSTEM: Breath sounds diminished at the bases. No rhonchi. No crackles. ABDOMEN: Soft, non-tender. No mass palpable. LEGS: Status post surgery. NERVOUS SYSTEM: No focal deficit. LABS: WBC 7.8, hemoglobin 9.8. Other labs are noted. ASSESSMENT: 1. Status post right total knee arthroplasty. 2. Postoperative nausea; possible acute gastritis, improving. 3. Headaches; possibly spinal headache versus migraine, acute exacerbation. 4. Bradycardia, possibly sinus, improved. 5. Increased creatinine prior to admission, improved. 6. History of hypothyroidism. 7. History of migraine. 8. History of degenerative joint disease. 9. History of thyroidectomy and goiter. 10.Remote history of nicotine dependence. RECOMMENDATIONS AND DISCUSSION: I recommend to continue current medications, continue with the monitoring, symptomatic treatment. Closely follow with Orthopedic Surgery. DVT prophylaxis. Spinal blood patch by Anesthesia. Otherwise, continue to monitor. Further recommendations to follow. MMODL / IJN: [id number] /
[2019-05-23] MEDS: SODIUM CHLORIDE 0.9% 1,000 ML IV SCH ×2 (04:30→20:52)
[2019-05-23] MEDS: LEVOTHYROXINE 75 MCG TAB PO SCH (06:21)
[2019-05-23] MEDS: METOCLOPRAMIDE 5 MG/ML 2 ML VIAL IVP SCH ×3 (08:30→17:28)
[2019-05-23] MEDS: ASPIRIN 81 MG PO SCH (08:47)
[2019-05-23] MEDS: PANTOPRAZOLE 40 MG TABLET PO SCH ×2 (08:47→17:29)
[2019-05-23] MEDS: traMADol 50 MG TAB PO PRN ×3 (08:47→20:52)
[2019-05-23] MEDS: MAG HYDROX/AL HYDROX/SIMETH 30 ML CUP PO SCH ×3 (08:48→20:52)
[2019-05-23] MEDS: POTASSIUM CHLORIDE ER 20 MEQ TAB.ER PO SCH ×2 (08:49→20:51)
[2019-05-23] MEDS: ONDANSETRON 4 MG/2 ML VIAL IVP PRN (08:51)
--- NOTE | 2019-05-23 09:19 | P.DS ---
Providers Date of admission: 05/19/19 09:09 Expected date of discharge: 05/23/19 Attending physician: Romero Apodaca Consults: 05/19/19 11:09 Consult Physician Routine Consulting Provider: Jas Steinberg Consult Reason/Comments: medical management Do you want consulting provider notified?: Yes Primary care physician: Jes Mg - Discharge Diagnosis(es) (1) Osteoarthritis of right hip Current Visit: Yes Status: Acute (2) Status post total hip replacement, right Current Visit: Yes Status: Acute Hospital Course: This is a 54-year-old female with known history of degenerative arthritis of the right hip. The patient presents for evaluation. After discussion and consideration patient elects to proceed with anterior total hip arthroplasty. The patient is seen preoperatively by her primary care physician and cleared for surgery. Patient is admitted to [facility] on 05/19/2019 for a right anterior total hip arthroplasty with Dr. Romero Apodaca. The procedures performed without complication. She did develop severe headaches and nausea postoperatively. Anesthesia performed a blood patch at the bedside yesterday. She is feeling better this morning and is ready for discharge. Labs and vital signs are stable on day of discharge. On day of discharge patient's hip incision is healing well. There is minimal erythema. There is no drainage noted at this time. There is minimal soft tissue swelling to the hip and thigh. Patient has full foot and ankle motion without difficulty or pain. Neurovascular status to the right lower extremity is intact. Patient is discharged to home in stable condition. Pertinent Studies: Laboratory Tests 05/22/19 07:27 WBC 7.8 RBC 3.50 L Hgb 9.8 L Hct 30.1 L Lymphocytes # 0.7 L Patient Condition at Discharge: Stable Plan - Discharge Summary Discharge Rx Participant: Yes New Discharge Prescriptions: New Sennosides [Senokot] 1 tab PO BID #60 tablet traMADol HCl [Ultram] 1 - 2 tab PO Q6H PRN #56 tab PRN Reason: Pain Ondansetron Odt [Zofran Odt] 1 - 2 tab PO Q8HR PRN #18 tab PRN Reason: Nausea Aspirin [Adult Low Dose Aspirin EC] 81 mg PO BID 30 Days #60 tablet. No Action Hydrochlorothiazide [Hydrodiuril] 25 mg PO DAILY Levothyroxine Sodium [Synthroid] 150 mcg PO DAILY Topiramate [Topamax] 100 mg PO DAILY Potassium Chloride ER [K-Dur 20] 20 meq PO BID Discharge Medication List Hydrochlorothiazide [Hydrodiuril] 25 mg PO DAILY 05/11/19 [History] Levothyroxine Sodium [Synthroid] 150 mcg PO DAILY 05/11/19 [History] Topiramate [Topamax] 100 mg PO DAILY 05/11/19 [History] Potassium Chloride ER [K-Dur 20] 20 meq PO BID 05/19/19 [History] Ondansetron Odt [Zofran Odt] 1 - 2 tab PO Q8HR PRN #18 tab 05/20/19 [Rx] Sennosides [Senokot] 1 tab PO BID #60 tablet 05/20/19 [Rx] traMADol HCl [Ultram] 1 - 2 tab PO Q6H PRN #56 tab 05/20/19 [Rx] Aspirin [Adult Low Dose Aspirin EC] 81 mg PO BID 30 Days #60 tablet. 05/22/19 [Rx] Follow up Appointment(s)/Referral(s): Jes Mg MD [Primary Care Provider] - 05/27/19 9:00 am Romero Apodaca DO [Doctor of Osteopathic Medicine] - 06/03/19 10:45 am Ambulatory/Diagnostic Orders: Walker w/ Wheels [DME.AMB1] Time Frame: 3 Months, Location: None Selected Ambulatory Miscellaneous Order [MISC.AMB] Time Frame: 3 Months, Facility: [facility], Location: Administrative event coordinator marketing and sales Patient Instructions/Handouts: Epidural Blood Patch (DC), Epidural Blood Patch (IP), Epidural Blood Patch (PRE) Activity/Diet/Wound Care/Special Instructions: [facility] Home Care: [phone] [facility] will deliver walker to bedside before discharge Weightbearing as tolerated with walker. Leave dressing intact. Dressing may be removed by home care nurse or by patient in 10 days. May shower with dressing on. Please take aspirin 81 mg twice daily for the next 30 days to prevent blood clots. Recommend use of compression stockings daily for at least 2 weeks during the day to help prevent swelling and blood clots. May remove at night before sleeping. Please follow-up with [facility] in 2 weeks and call with any questions or concerns, . Discharge Disposition: HOME WITH HOME HEALTH SERVICES
--- NOTE | 2019-05-23 18:55 | PN ---
PROGRESS NOTE DATE OF SERVICE: 05/23/2019. This 54-year-old woman who was admitted after right total knee arthroplasty also had significant nausea, vomiting. The patient also had a headache, possibly postanesthesia headache and the patient received a blood patch. The patient is being closely monitored. No chest pain. No palpitations. No fever. The patient is still unable to keep a significant amount of fluids and food down at this time. EXAM: Alert and oriented x3. Pulse is 81. Blood pressure 145/80, respiration 17, temperature 97.2, pulse ox 98% on room air. HEENT: Conjunctivae normal. NECK: No JVD. CARDIOVASCULAR: S1, S2 muffled. RESPIRATORY: Breath sounds diminished in the bases. No rhonchi. No crackles. ABDOMEN is soft, nontender. LEGS: Status post surgery. NERVOUS SYSTEM: No focal deficits. LABS: WBC 7.2, hemoglobin 9.8. ASSESSMENT: 1. Status post right total knee arthroplasty. 2. Postoperative nausea, possible acute gastritis, improving. 3. Headache, possible spinal headache status post blood patch. 4. Possible migraine, acute exacerbation. 5. Bradycardia possibly sinus, improved. 6. Increased creatinine prior to admission, improved. 7. History of hypothyroidism. 8. History of migraine. 9. History of degenerative joint disease. 10.History of thyroidectomy, goiter. 11.Remote history of nicotine dependence. RECOMMENDATIONS AND DISCUSSION: Recommend to continue current medications, management and symptomatic treatment. Otherwise, at this time, I recommend continued symptomatic treatment. Otherwise, see orders for details. Continue with Lovenox and avoid aspirin at this point because of GI symptoms. Further recommendations to follow. MMODL / IJN: [id number] /
[2019-05-23] MEDS: SENNOSIDES-DOCUSATE SODIUM 1 EACH TAB PO SCH (20:52)
[2019-05-23] MEDS: TOPIRAMATE 100 MG TAB PO SCH (20:52)
[2019-05-24] MEDS: traMADol 50 MG TAB PO PRN ×2 (02:05→07:24)
[2019-05-24] MEDS: LEVOTHYROXINE 75 MCG TAB PO SCH (05:28)
[2019-05-24] MEDS: PANTOPRAZOLE 40 MG TABLET PO SCH (07:14)
[2019-05-24] MEDS: MAG HYDROX/AL HYDROX/SIMETH 30 ML CUP PO SCH (07:14)
[2019-05-24] MEDS: METOCLOPRAMIDE 5 MG/ML 2 ML VIAL IVP SCH ×2 (07:14→11:59)
[2019-05-24] MEDS: POTASSIUM CHLORIDE ER 20 MEQ TAB.ER PO SCH (07:14)
[2019-05-24] MEDS: SODIUM CHLORIDE 0.9% 1,000 ML IV SCH (08:01)
[2019-05-24 08:10] LABS: Basophils % (A) 0 %; Eosinophils # (A) 0.1 k/uL (0-0.7); Eosinophils % (A) 2 %; HGB 8.9 gm/dL (11.4-16.0); Lymphocytes # (A) 0.8 k/uL (1.0-4.8); Lymphocytes % (A) 16 %; MCH 28.4 pg (25.0-35.0); MCHC 33.1 g/dL (31.0-37.0); MCV 85.7 fL (80.0-100.0); Monocytes # (A) 0.3 k/uL (0-1.0); Monocytes % (A) 6 %; Neutrophils # (A) 3.7 k/uL (1.3-7.7); Neutrophils % (A) 74 %; Platelet Count 213 k/uL (150-450); RBC 3.15 m/uL (3.80-5.40); RDW 14.8 % (11.5-15.5); WBC 4.9 k/uL (3.8-10.6)
[2019-05-24 08:21] VITALS: BP 120/71; PULSE 80; RESP 16; TEMP 98.1
[2019-05-24] MEDS ORDERED: RIVAROXABAN 10 MG TAB PO SCH (09:00)
--- NOTE | 2019-05-25 00:24 | PN ---
PROGRESS NOTE DATE OF SERVICE: 05/24/2019 This 54-year-old woman who was admitted with right total knee arthroplasty, had postoperative headache and vomiting which improved significantly. No chest pain. No palpitations. No fever. Blood patch has been done by anesthesia. EXAM: Alert and oriented x2. Pulse 80, blood pressure ( ), respirations 16, temperature 98.1, pulse ox 97% on room air. HEENT: Conjunctivae normal. Oral mucosa moist. NECK: No jugular venous distention. No lymph node enlargement. CARDIOVASCULAR: S1, S2. RESPIRATORY: Diminished breath sounds at the bases. No rhonchi, no crackles. ABDOMEN: Soft, nontender. LEGS: No swelling. NERVOUS SYSTEM: No focal deficits. LABS: WBC 4.2, hemoglobin is 8.9. ASSESSMENT: 1. Status post right total knee arthroplasty. 2. Postoperative nausea with possible acute gastritis, improved. 3. Headache, possibly spinal headache status post blood patch. 4. Possible migraine, acute exacerbation, improved. 5. Sinus bradycardia, improved. 6. History of increased serum creatinine prior to admission, improved. 7. History of hypothyroidism. 8. History of migraine. 9. History of degenerative joint disease. 10.History of thyroidectomy, goiter. 11.Remote history of nicotine dependence. RECOMMENDATIONS AND DISCUSSION: I recommend to continue current management and symptomatic treatment. Otherwise, closely follow with Orthopedic surgery. Recommend proton pump inhibitors, close outpatient followup, followup labs in the outpatient. The rest of the recommendations per Surgery. Further recommendations to follow. MMODL / IJN: [id number] /
== END 2019-05-24 13:53 | disposition home health service (06) | DRG 470 ==
LOC: 2ORMAIN 05-19 09:09 → 4SSUR 05-19 16:31
PROVIDERS: ADMIT Orthopaedic Surgery; ATTEND Orthopaedic Surgery
PROC: 30233N0 Transfusion of Autologous Red Blood Cells into Peripheral Vein, Percutaneous Approach (ICD-10-PCS; 2019-05-19)
PROC: 0SR906A Replacement of Right Hip Joint with Oxidized Zirconium on Polyethylene Synthetic Substitute, Uncemented, Open Approach (ICD-10-PCS; principal; 2019-05-19 11:15)
PROC: 3E0R3GC Introduction of Other Therapeutic Substance into Spinal Canal, Percutaneous Approach (ICD-10-PCS; 2019-05-22)
DX: M16.11 Unilateral primary osteoarthritis, right hip (principal); I95.9 Hypotension, unspecified; G97.1 Other reaction to spinal and lumbar puncture; M41.86 Other forms of scoliosis, lumbar region; K29.00 Acute gastritis without bleeding; R00.1 Bradycardia, unspecified; E89.0 Postprocedural hypothyroidism; M19.90 Unspecified osteoarthritis, unspecified site; G43.909 Migraine, unspecified, not intractable, without status migrainosus; Z79.890 Hormone replacement therapy; Z79.899 Other long term (current) drug therapy; Z90.710 Acquired absence of both cervix and uterus; Z87.891 Personal history of nicotine dependence; Z96.651 Presence of right artificial knee joint; Y84.4 Aspiration of fluid as the cause of abnormal reaction of the patient, or of later complication, without mention of misadventure at the time of the procedure
CPT/HCPCS: 62273; 70450; 71045; 73501; 80048; 81003; 85025; 86850; 86891; 86900; 86901; 87086; 88300

== ENCOUNTER → 2019-05-11 | Outpatient (CLI) | payer BC ==
[2019-05-11 15:19] LABS: HCT 38.7 % (34.0-46.0); HGB 12.8 gm/dL (11.4-16.0); MCH 28.5 pg (25.0-35.0); MCV 86.2 fL (80.0-100.0); Mean Platelet Volume 6.8; Platelet Count 219 k/uL (150-450); RBC 4.49 m/uL (3.80-5.40); RDW 14.2 % (11.5-15.5); WBC 5.3 k/uL (3.8-10.6)
[2019-05-11 15:24] LABS: Potassium 3.7 mmol/L (3.5-5.1)
[2019-05-11 15:39] LABS: Amorphous Sediment,Urine Rare /hpf; Appearance,Urine Clear (Clear); Bilirubin,Urine Negative (Negative); Blood,Urine Negative (Negative); Color,Urine Light Yellow; Glucose,Urine (UA) Negative (Negative); Ketones,Urine Negative (Negative); Leukocyte Esterase,Urine Moderate (Negative); Mucus,Urine Rare /hpf; Nitrite,Urine Negative (Negative); Protein,Urine Negative (Negative); RBC,Urine 1 /hpf (0-5); Specific Gravity,Urine 1.016 (1.001-1.035); Squamous Epithelial Cell,Urine 2 /hpf (0-4); Urobilinogen,Urine <2.0 mg/dL (<2.0); WBC,Urine 3 /hpf (0-5)
[2019-05-11 15:41] LABS: INR 0.9 (<1.2); Partial Thromboplastin Time 25.7 sec (22.0-30.0); Prothrombin Time 9.6 sec (9.0-12.0)
== END | disposition home or self-care (01) ==
LOC: LABPAT 13:55
PROVIDERS: ATTEND Orthopaedic Surgery
DX: Z01.812 Encounter for preprocedural laboratory examination (principal)
CPT/HCPCS: 80051; 81001; 82565; 84520; 85027; 85610; 85730; 86850; 86900; 86901; 87070

== ENCOUNTER → 2019-06-03 | Outpatient (CLI) | payer BC ==
[2019-06-03 10:23] LABS: Basophils % (A) 1 %; Eosinophils # (A) 0.1 k/uL (0-0.7); Eosinophils % (A) 2 %; HCT 36.5 % (34.0-46.0); HGB 11.7 gm/dL (11.4-16.0); Hypochromasia Slight; Lymphocytes # (A) 0.8 k/uL (1.0-4.8); Lymphocytes % (A) 14 %; MCH 27.5 pg (25.0-35.0); MCV 85.8 fL (80.0-100.0); Mean Platelet Volume 6.3; Monocytes # (A) 0.4 k/uL (0-1.0); Monocytes % (A) 7 %; Neutrophils % (A) 75 %; RBC 4.25 m/uL (3.80-5.40); RDW 14.2 % (11.5-15.5); WBC 5.3 k/uL (3.8-10.6)
[2019-06-03 10:35] LABS: Platelet Count 438 k/uL (150-450)
[2019-06-03 16:51] LABS: African American GFR (CKD) 65.5 (60.0-200.0); Anion Gap 8.7 mmol/L (4.00-12.00); BUN/Creat Ratio 19.09 Ratio (12.00-20.00); Calcium 9.8 mg/dL (8.7-10.3); Carbon Dioxide 26.3 mmol/L (21.6-31.8); Potassium 3.5 mmol/L (3.5-5.5)
== END | disposition home or self-care (01) ==
LOC: LABWHC1 09:14
PROVIDERS: ATTEND Hospitalist
DX: D64.9 Anemia, unspecified (principal)
CPT/HCPCS: 36415; 80048; 85025